=== PATIENT | female | born 1980 | race Caucasian/White ===

== ENCOUNTER 2020-04-07 13:51 | Outpatient (REF) | payer OTHER, SELFPAY | END 2020-04-07 13:52 | disposition home or self-care (01) | LOC: HO.LNP 13:51 | PROVIDERS: Visit Provider Hospitalist | DX: Z20.828 Contact with and (suspected) exposure to other viral communicable diseases (principal) | CPT/HCPCS: U0003 ==

== ENCOUNTER 2020-08-29 08:59 | Outpatient (REF) | payer OTHER, SELFPAY | END 2020-08-29 09:00 | disposition home or self-care (01) | LOC: HO.LAB 08:59 | PROVIDERS: Visit Provider Nurse Practitioner Family | DX: R39.0 Extravasation of urine (principal); R30.0 Dysuria | CPT/HCPCS: 87086 ==

== ENCOUNTER 2020-10-03 11:01 | Outpatient (REF) | payer OTHER, SELFPAY ==
[2020-10-04 08:45] LABS: BV Int Neg Control Negative (Negative); BV Int Pos Control Positive (Positive)
== END 2020-10-03 11:02 | disposition home or self-care (01) ==
LOC: HO.LAB 11:01
PROVIDERS: Visit Provider Nurse Practitioner Family
DX: R35.0 Frequency of micturition (principal)
CPT/HCPCS: 87086; 87480; 87510; 87660

== ENCOUNTER 2022-06-19 09:26 | Outpatient (REF) | payer OTHER, SELFPAY ==
[2022-06-19 17:13] LABS: CT PCR NOT DETECTED (Not Detect.); NG PCR NOT DETECTED (Not Detect.)
[2022-06-20 09:20] LABS: BV Int Neg Control Negative (Negative); BV Int Pos Control Positive (Positive)
[2022-06-24 21:34] LABS: HPV mRNA E6/E7 rflx Not Detected (Not Detected)
== END 2022-06-19 09:27 | disposition home or self-care (01) ==
LOC: HO.LNP 09:26
PROVIDERS: PCP Nurse Practitioner Family; Visit Provider Advanced Practice Midwife
DX: Z01.419 Encounter for gynecological examination (general) (routine) without abnormal findings (principal); Z11.51 Encounter for screening for human papillomavirus (HPV); Z97.5 Presence of (intrauterine) contraceptive device
CPT/HCPCS: 0353U; 87480; 87510; 87624; 87660; 88142

== ENCOUNTER 2022-07-10 15:52 | Outpatient (REF) | payer OTHER, SELFPAY ==
--- NOTE | ~2022-07-10 | MM_ITS ---
EXAMINATION: MM SCREENING DIGITAL BREAST TOMOSYNTHESIS, BILATERAL CLINICAL INFORMATION: Screening. Asymptomatic. The lifetime risk of breast cancer based on the Tyrer-Cuzick Model is 10.4%. COMPARISON: Mammography: None. TECHNIQUE: Digital breast tomosynthesis is performed in both the craniocaudal and mediolateral oblique views along with computer-aided detection (CAD). Synthesized 2D images are generated from the tomosynthesis. FINDINGS: The breasts are extremely dense, which lowers the sensitivity of mammography (ACR BI-RADS breast composition Category d). No suspicious dominant mass or grouping of calcifications within the left breast is identified. Within the anterior inferior medial aspect of the right breast there is an asymmetric density with question of a few calcifications for which spot magnification views are recommended. MM/MM tomosynthesis screening BI IMPRESSION: Right breast density for further evaluation. ASSESSMENT: BI-RADS 0: Incomplete - Need Additional Imaging Evaluation RECOMMENDATION: 1. Additional views of the right breast. 2. Targeted ultrasound if warranted after review of the additional views. 3. Radiology department staff will contact the patient for additional imaging. This patient's information was entered into a reminder system with a target due date for their next mammogram.
== END 2022-07-10 15:53 | disposition home or self-care (01) ==
LOC: HO.MAMMO 15:52
PROVIDERS: Visit Provider Advanced Practice Midwife
DX: Z12.31 Encounter for screening mammogram for malignant neoplasm of breast (principal)
CPT/HCPCS: 77063; 77067

== ENCOUNTER → 2022-07-22 08:58 | Outpatient (BNVA) | payer OTHER, SELFPAY | PROVIDERS: PCP Nurse Practitioner Family; Visit Provider Advanced Practice Midwife | DX: Z30.433 Encounter for removal and reinsertion of intrauterine contraceptive device (principal) | CPT/HCPCS: 58300; 58301; 81025; 99212; J7298 ==

== ENCOUNTER 2022-07-25 13:52 | Outpatient (REF) | payer OTHER, SELFPAY ==
--- NOTE | ~2022-07-25 | MM_ITS ---
EXAMINATION: MM DIAGNOSTIC DIGITAL BREAST TOMOSYNTHESIS, RIGHT CLINICAL INFORMATION: Recall from baseline screening for question of asymmetric density with calcifications anterior lower inner right breast. TC score 10%. COMPARISON: Mammography: 07/10/2022 (baseline) TECHNIQUE: Digital breast tomosynthesis is performed. 2D images are generated from the tomosynthesis. The following views are obtained: Magnification CC, magnification ML, spot MLO, standard ML. FINDINGS: The breasts are heterogeneously dense, which may obscure small masses (ACR BI-RADS breast composition Category c). The additional views show no asymmetric density or mass or architectural abnormality. There are no abnormal calcifications. No mammographic evidence of malignancy. No suspicious findings. Results are discussed with the patient at time of visit. MM/MM tomosynthesis added views R IMPRESSION: No mammographic evidence of malignancy. ASSESSMENT: BI-RADS 1: Negative RECOMMENDATION: Routine annual mammography screening. This patient's information was entered into a reminder system with a target due date for their next mammogram.
== END 2022-07-25 13:53 | disposition home or self-care (01) ==
LOC: HO.MAMMO 13:52
PROVIDERS: Visit Provider Advanced Practice Midwife
DX: R92.2 Inconclusive mammogram (principal); R92.1 Mammographic calcification found on diagnostic imaging of breast
CPT/HCPCS: 77061; 77065

== ENCOUNTER 2023-05-15 15:18 | Outpatient (AMB) | payer OTHER, SELFPAY ==
--- NOTE | 2023-05-15 15:43 | MHC.PC.OV ---
Vital Signs 05/15/23 15:47 Height 5 ft 5 in Weight 244 lb BMI 40.6 BP 122/78 Blood Pressure Location Rt brachial Position Sitting Pulse 90 Pulse Source Pulse Oximeter Pulse Oximetry (%) 98 Oxygen Delivery Method Room Air Intake Visit Reasons: Annual PE Intake Note: last pap: june 2022- [facility] Last mammo: July 2022 Allergies From Soy Adverse Reaction (Mild, Uncoded 05/15/23 15:47) NAUSEA, VOMITING, DIARRHEA, ABDOMINAL PAIN Medication List - Last Reconciled 05/15/23 by FRANCISCO Bradley aripiprazole 10 mg PO DAILY budesonide-formoterol 80-4.5 mcg/actuation 2 puffs PO DAILY bupropion HCl 150 mg PO QAM dextroamphetamine-amphetamine 10 mg ER 1 cap PO QAM dextroamphetamine-amphetamine 20 mg ER 2 caps PO QAM fluoxetine 40 mg PO QAM levonorgestrel (Mirena) intrauterine nortriptyline 25 mg PO BEDTIME Tobacco use date assessed: 07/11/22 Dental Screening Dental Screen Date: 05/15/23 Did you have a dental visit in the last 12 months?: Yes Did you have a dental problem in the last 6 months where you did not have access to dental care?: No Was dental information given to patient?: Patient has dentist HPI Annual PE HPI Details Pt is here for a PE. Will order labs. Mammo is up to date. Has a embedded case manager. Pt has a psychiatrist. [facility] Medical History Bronchitis ADHD (attention deficit hyperactivity disorder) Asthma Surgical History History of wisdom tooth extraction Family History Mother Medical history unknown Father Medical history unknown Maternal Grandmother Cancer Maternal Grandfather CVD (cardiovascular disease) Paternal Grandmother Cancer Paternal Grandfather Past heart attack CVD (cardiovascular disease) Family/Other FH: mental illness Substance abuse Sister In good health Son In good health Daughter In good health Social History Housing: House Patient Tobacco Use Status: Never used Tobacco e-Cigarette/Vaping Use: Never Used Second Hand Smoke Exposure: No service: No Current occupational status: employed 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 1. Little interest or pleasure in doing things: several days 2. Feeling down, depressed, or hopeless: not at all 3. Trouble falling or staying asleep, or sleeping too much: more than half the days 4. Feeling tired or having little energy: more than half the days 5. Poor appetite or overeating: more than half the days 6. Feeling bad about yourself - or that you are a failure or have let yourself or your family down: several days 7. Trouble concentrating on things, such as reading the newspaper or watching television: several days 8. Moving or speaking so slowly that other people could have noticed. Or the opposite - being so fidgety or restless that you have been moving around a lot more than usual: not at all 9. Thoughts that you would be better off or of hurting yourself in some way: not at all Total score: 9 Depression Screening Interpretation: Positive Depression Screening Follow-up: Existing condition and In treatment Depression Screening Done: Yes 90816 - PHQ-9 Billing: Yes Source: Developed by Drs. Nils Alexandra, Sara Victor, Feliberto Santillan and colleagues, with an educational chinmay from [employer]. Thrive Questionnaire Date Thrive assessed: 05/15/23 I am a: Patient What is your living situation today?: I have a steady place to live Within the past 12 months, did the food you bought not last and you didn't have the money to get more?: Never true Within the past 12 months, did you worry whether your food would run out before you got money to buy more?: Never true Do you have trouble paying for medicines?: No Do you have trouble getting transportation to medical appointments?: No Do you have trouble paying your heating and electricity bill?: No Do you have trouble taking care of your child, family member or friend?: No Do you have trouble with day-to-day activities such as bathing, preparing meals, shopping, managing finances, etc.?: No Are you currently unemployed and looking for a job?: No Are you interested in more education?: No Please select the resources that you would like help with: None AUDIT C Alcohol Use Questionnaire (AUDIT-C) 1. How often do you have a drink containing alcohol?: 2-4 times a month 2. How many drinks containing alcohol do you have on a typical day when you are drinking?: 3 or 4 3. How often do you have six or more drinks on one occasion?: Less than monthly Total Score: 4 LORIN-7 AMB Questionnaire LORIN-7 Date LORIN - 7 assessed: 05/15/23 Feeling nervous, anxious, or on edge: 1 = Several days Not being able to stop or control worryin = Several days Worrying too much about different things: 1 = Several days Trouble relaxin = Not at all Being so restless that it is hard to sit still: 1 = Several days Becoming easily annoyed or irritable: 0 = Not at all Feeling afraid as if something awful might happen: 0 = Not at all Total LORIN-7 score (0-4 normal; 5-9 mild; 10-14 moderate; 15-21 severe): 4 Source: Developed by Drs. Nils Alexandra, Sara Victor, Feliberto Santillan and colleagues, with an educational chinmay from [employer]. LORIN-7 Assessment Billing LORIN-7 Assessment Tool: LORIN-7 Assessment 06129 (pt reports stress, but does not want a therapist) Review of Systems Const Denies chills and Denies fever(s) Eyes Denies blurry vision ENT Denies vertigo, Denies dizziness and Denies sore throat Card Denies chest pain at rest, Denies chest pain with activity, Denies diaphoresis, Denies dyspnea and Denies dyspnea on exertion Resp Denies cough, Denies dyspnea, Denies dyspnea on exertion and Denies wheezing GI Denies abdominal pain, Denies melena, Denies hematochezia, Denies constipation, Denies diarrhea and Denies loose stools Denies hematuria Musc Denies numbness and Denies tingling Skin/Breast Denies lesions Neuro Denies vertigo, Denies dizziness, Denies numbness and Denies tingling Psych Denies anxiety, Denies depression, Denies homicidal ideation, Denies suicidal ideation and Denies other (substance abuse) Aller/Immun Denies wheezing Physical exam (Primary Care) Vital Signs: Last Vital Signs Pulse 90 05/15/23 15:47 BP 122/78 05/15/23 15:47 Pulse Ox 98 05/15/23 15:47 Oxygen Delivery Method Room Air 05/15/23 15:47 BMI result Body Mass Index 40.6 Tobacco/Smoking Status: Tobacco use Status Tobacco use date assessed 07/11/22 05/15/23 15:45 Patient Tobacco Use Status Never used Tobacco 05/15/23 15:45 e-Cigarette/Vaping Use Never Used 05/15/23 15:45 PHQ-9: PHQ-9 Score PHQ-9: Total score 9 05/15/23 17:46 Depression Screening Interpretation: Positive Depression Screening Follow-up: Existing condition and In treatment Thrive Assessment: Date of Thrive Assessment Date Thrive assessed 05/15/23 05/15/23 17:46 Const General: cooperative Nutritional Appearance: obese Orientation/consciousness: patient oriented x3 HENMT Head: Yes normal to inspection, Yes normocephalic and Yes atraumatic Ears: TM's normal bilaterally Eyes General: appearance normal, both eyes and all related structures Alignment and Position: alignment normal and position normal Neck Neck: Yes normal visual inspection and Yes no lymphadenopathy Thyroid: Thyroid normal Resp Effort & Inspection: normal respiratory effort Auscultation: clear to auscultation bilaterally Cardio Rate: regular rate Rhythm: regular rhythm Heart sounds: S1 normal heart sound present, S2 normal heart sound present and no murmurs GI Palpation (GI): Soft to palpation and nontender Auscultation: normal bowel sounds Skin Rashes: no rashes Neuro General: patient oriented x3, moves all extremities, no focal motor deficits and deep tendon reflexes 2+ bilaterally Romberg Test: Negative Psych Appearance: grossly normal Mental Status: mental status grossly normal Speech and movement: Normal speech and movement present Affect: normal affect Attitude: cooperative Thought process: Normal thought process present Thought content: Normal thought content present Insight: Good insight present (Psych) Judgement: Good judgement present (Psych) Assessment and Plan Assessment & Plan (1) Physical exam: Code(s): Z00.00 - Encounter for general adult medical examination without abnormal findings Plan: Labs ordered Plan The patient agreed to the use of a biomedical engineering director for this encounter. Scribed for FRANCISCO Rose by Viviana Rao biomedical engineering director, on 05/15/2023 at 16:00 EST. Orders: Orders Complete Blood Count Auto Diff Today Z00.00 - Encounter for general adult medical examination without abnormal findings Comprehensive [place]. Panel Fast Today Z00.00 - Encounter for general adult medical examination without abnormal findings Lipid Panel Today Z00.00 - Encounter for general adult medical examination without abnormal findings TSH reflex Free T4 Today Z00.00 - Encounter for general adult medical examination without abnormal findings UA CC w/rflx Micro + Cult Today Z00.00 - Encounter for general adult medical examination without abnormal findings Coding Level of Care Code Est Pt Prev Care 40-64y(58869) Diagnoses Physical exam Z00.00 Additional Codes LORIN-7 Assessment Billing - LORIN-7 Assessment Tool: LORIN-7 Assessment [id number] ([id number])
[2023-05-15 15:47] VITALS: BP 122/78; PULSE 90; O2SAT 98; BMI 40.6
== END 2023-05-15 16:13 | disposition home or self-care (01) ==
PROVIDERS: PCP Nurse Practitioner Family; Visit Provider Nurse Practitioner Family
DX: Z00.00 Encounter for general adult medical examination without abnormal findings (principal)
CPT/HCPCS: 99396

== ENCOUNTER 2023-06-23 09:54 | Outpatient (AMB) | payer OTHER, SELFPAY ==
[2023-06-23 09:59] VITALS: BP 112/74; BMI 41.5
--- NOTE | 2023-06-23 09:59 | MHC.OFFVIS ---
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 Allergies From Soy Adverse Reaction (Mild, Uncoded 05/15/23 15:47) NAUSEA, VOMITING, DIARRHEA, ABDOMINAL PAIN Medication List - Last Reconciled 06/23/23 by Lucero Dillon CNM aripiprazole 10 mg PO DAILY budesonide-formoterol 80-4.5 mcg/actuation 2 puffs PO DAILY bupropion HCl 150 mg PO QAM dextroamphetamine-amphetamine 10 mg ER 1 cap PO QAM dextroamphetamine-amphetamine 20 mg ER 2 caps PO QAM fluoxetine 40 mg PO QAM levonorgestrel (Mirena) intrauterine nortriptyline 25 mg PO BEDTIME Is last menstrual period known: No (mirena) HPI 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 And that works very well. She has no worries at all about STIs she has not due for Pap smear as her last 1 was done last year and it was negative and she has never had an abnormal 1. She was working on weight loss last year but then sprained her ankle and then has been recovering from plantar fasciitis which she has been doing all the home exercises for so she is planning on trying to readdress the weight loss issues. She sees her primary care provider for her other concerns and is not having any active concerns at this moment. she has a mammogram appointment coming up. [facility] Medical History Bronchitis ADHD (attention deficit hyperactivity disorder) Asthma Surgical History History of wisdom tooth extraction Family History Mother Medical history unknown Father Medical history unknown Maternal Grandmother Cancer Maternal Grandfather CVD (cardiovascular disease) Paternal Grandmother Cancer Paternal Grandfather Past heart attack CVD (cardiovascular disease) Family/Other FH: mental illness Substance abuse Sister In good health Son In good health Daughter In good health Social History Housing: House Patient Tobacco Use Status: Never used Tobacco e-Cigarette/Vaping Use: Never Used Second Hand Smoke Exposure: No service: No Current occupational status: employed 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 [employer] Current occupational exposures/hazards: No Cognitive needs: No Hearing needs: No Vision needs: No Female Reproductive History Menstrual Age of Menarche: 14 control method: progestin IUCD (mirena-replaced 07/22/2022.) Total pregnancies: 2 Number of Living Children: 2 Physical Exam Vital Signs: Last Vital Signs BP 112/74 06/23/23 09:59 Oxygen Delivery Method Room Air 06/23/23 09:59 BMI result Body Mass Index 41.5 Const General: healthy appearing, comfortable, no acute distress, well developed and alert Nutritional Appearance: average body habitus Orientation/consciousness: patient oriented x3 Limitations: no limitations HEENT Head: Yes normocephalic Neck Neck: Yes normal visual inspection Chest Chest palpation & inspection: normal inspection of the chest Breast/axilla inspection: normal inspection of the breasts and normal inspection of the axillae Breast/axilla palpation: normal palpation of the breasts and normal palpation of the axillae Resp Effort & Inspection: normal respiratory effort GI Inspection: Yes normal to inspection, No Abdominal wall edema and No distended Palpation (GI): Soft to palpation and nontender Other: External exam is within normal limits vagina pink and moist cervix multiparous pink healthy appearing normal mucus Mirena string visible. Cervix multiparous mobile nontender adnexa nontender uterus not enlarged midposition slightly difficult to feel secondary to adipose. Good tone with Kegel. General: Yes bladder normal to palpation External Female Exam: normal external appearance and normal appearance of the urethra Speculum Exam - Vagina: normal appearance of the vagina, normal palpation and normal vaginal discharge Speculum Exam - Cervix: normal appearance of the cervix, normal palpation and nontender Bimanual exam- vagina & uterus: normal bimanual exam, normal palpation, uterine size normal, bladder normal to palpation, consistency normal, normal palpation, uterine mobility normal, uterine shape normal, No Cervical tenderness present, non-tender and no cervical motion tenderness Bimanual Exam- Adnexa, other: normal adnexae, no masses, normal and No adnexal tenderness Neuro General: patient oriented x3 Results Reviewed Results Reviewed: Name: Beatrice Sam Age/Sex: 41/F Attending: Lucero Dillon CNM : 1980 Submitted by: Lucero Dillon CNM Copies to: Brian Blake [facility] MR #: [id number] Status: DEP REF Collected: 06/19/22 Location: [facility] Received: 06/19/22 Interpretation Satisfactory for evaluation. Negative for intraepithelial lesion or malignancy. HPV mRNA E6/E7: NOT DETECTED This assay detects E6/E7 viral messenger RNA (mRNA) from 14 high-risk HPV types (16, 18, 31, 33, 35, 39, 45, 51, 52, 56, 58, 59, 66, 68) HPV testing performed by [facility], [place], [place]. See reference laboratory portion of the EMR for entire report. Clinical Information LMP: Mirena Previous PAP test: 10/18/15, WNL Material Received ThinPrep-Cervical Copies To [facility] BlakeKATERINE 1960 [facility] [address]. [address] [place] [id number] Lucero Dillon CNM [address] [place] [address] Dr. Christel Kelley [place] [id number] Electronically Signed By: Beatrice Jazmin Jessica 06/29/22 7221 The Pap Test is a screening procedure with the inherent possibility of both false negative and false positive results. Results should be interpreted in the context of historic and current clinical findings. Reliability of the Pap Test is enhanced by performing the test on a regular repetitive basis. Patient: Beatrice Sam Age/Sex: 41/F MR#: [id number] Page 1 of 1 Assessment & Plan Assessment & Plan (1) Screening for cervical cancer: Comment: 06/19/2022 Pap is negative with negative HPV. Code(s): Z12.4 - Encounter for screening for malignant neoplasm of cervix (2) Presence of 52 mg levonorgestrel-releasing intrauterine device (IUD): Comment: .Was replaced 07/22/2022 Code(s): Z97.5 - Presence of (intrauterine) contraceptive device (3) Well woman exam with routine gynecological exam: Code(s): Z01.419 - Encounter for gynecological examination (general) (routine) without abnormal findings (4) Obesity, morbid, BMI 40.0-49.9: Comment: unfortunately gained, secondary to having a sprained ankle and plantar fasciitis in 2022, is trying to get back and the groove this year... Code(s): E66.01 - Morbid (severe) obesity due to excess calories Plan -----Discussed in this visit the following: healthy balanced diet, regular and consistent exercise, getting recommended health screens, doing the best she can for her particular health concerns, kegel exercises, pap smear screening and followup recommendations, mammography screening and SBE, normal changes in cycles in her life stage--- . Reviewed her history as noted in HPI she is happy with the new Mirena and it has not giving her any difficulty. She has her mammogram coming up she has not due for Pap and she has never had an abnormal Pap. She declined STI testing is having no concerns whatsoever Discussed an acknowledged the challenges of trying to be as healthy as 1 can be in losing weight especially in the face of injuries that she is had this year. She is doing the best she can with self-care she has not quite ready for a referral to weight management at this time. She could discuss it with her primary if she so chooses. Coding Level of Care Code Est Pt Prev Care 40-64y(74124) Diagnoses Screening for cervical cancer Z12.4 Presence of 52 mg levonorgestrel-releasing intrauterine device (IUD) Z97.5 Well woman exam with routine gynecological exam Z01.419 Obesity, morbid, BMI 40.0-49.9 E66.01
== END 2023-06-23 11:05 | disposition home or self-care (01) ==
PROVIDERS: Visit Provider Advanced Practice Midwife
DX: Z01.419 Encounter for gynecological examination (general) (routine) without abnormal findings (principal); E66.01 Morbid (severe) obesity due to excess calories; Z97.5 Presence of (intrauterine) contraceptive device
CPT/HCPCS: 99396

== ENCOUNTER → 2023-06-23 09:54 | Outpatient (BNVA) | payer OTHER, SELFPAY | PROVIDERS: Visit Provider Advanced Practice Midwife ==

== ENCOUNTER 2023-07-14 13:34 | Outpatient (REF) | payer OTHER, SELFPAY ==
--- NOTE | ~2023-07-14 | MM_ITS ---
EXAMINATION: MM SCREENING DIGITAL BREAST TOMOSYNTHESIS, BILATERAL CLINICAL INFORMATION: Screening. Asymptomatic. COMPARISON: Mammography: This study is compared with prior exams dating back to 2022. TECHNIQUE: Digital breast tomosynthesis is performed in both the craniocaudal and mediolateral oblique views along with computer-aided detection (CAD). Synthesized 2D images are generated from the tomosynthesis. FINDINGS: The breasts are heterogeneously dense, which may obscure small masses (ACR BI-RADS breast composition Category c). There are no significant masses, abnormal calcifications, or other abnormalities. MM/MM tomosynthesis screening BI IMPRESSION: No mammographic evidence of malignancy. ASSESSMENT: BI-RADS BI-RADS 1 - Negative RECOMMENDATION: Routine annual mammography screening. 1 year F/U This examination should not preclude the clinical evaluation of a suspicious palpable abnormality. This patient's information was entered into a reminder system with a target due date for their next mammogram.
== END 2023-07-14 13:35 | disposition home or self-care (01) ==
LOC: HO.MAMMO 13:34
PROVIDERS: PCP Nurse Practitioner Family; Visit Provider Nurse Practitioner Family
DX: Z12.31 Encounter for screening mammogram for malignant neoplasm of breast (principal)
CPT/HCPCS: 77063; 77067

== ENCOUNTER → 2023-07-14 13:45 | Outpatient (BNV) | payer OTHER, SELFPAY | PROVIDERS: PCP Nurse Practitioner Family; Visit Provider Radiology Diagnostic Radiology | DX: Z12.31 Encounter for screening mammogram for malignant neoplasm of breast (principal) | CPT/HCPCS: 77063; 77067 ==

== ENCOUNTER 2024-06-03 10:21 | Outpatient (AMB) | payer OTHER, SELFPAY ==
[2024-06-03 10:25] VITALS: BP 116/78; PULSE 87; O2SAT 98; BMI 40.8
--- NOTE | 2024-06-03 10:25 | A.OFFPC_ITS ---
Vital Signs 06/03/24 10:25 Height 5 ft 5 in Weight 245 lb BMI 40.8 BP 116/78 Blood Pressure Location Lt brachial Position Sitting Pulse 87 Pulse Source Pulse Oximeter Pulse Oximetry (%) 98 Oxygen Delivery Method Room Air Intake Visit Reasons: PE Intake Note: Pt is here today for PE. Allergies From Soy Adverse Reaction (Mild, Uncoded 06/03/24 11:00) NAUSEA, VOMITING, DIARRHEA, ABDOMINAL PAIN Medication List - Last Reconciled 06/03/24 by Brian Blake [facility]- aripiprazole 10 mg PO DAILY budesonide-formoterol 80-4.5 mcg/actuation 2 puffs PO DAILY bupropion HCl XL 150 mg PO QAM dextroamphetamine-amphetamine 10 mg ER 30 mg PO QAM dextroamphetamine-amphetamine 20 mg ER 20 mg PO QAM fluoxetine 40 mg PO QAM levonorgestrel (Mirena) intrauterine nortriptyline 25 mg PO BEDTIME Tobacco use date assessed: 06/03/24 Dental Screening Dental Screen Date: 06/03/24 Did you have a dental visit in the last 12 months?: Yes Did you have a dental problem in the last 6 months where you did not have access to dental care?: No Was dental information given to patient?: Patient has dentist HPI PE HPI Details History of Present Illness The patient is a 43-year-old female presenting with a focus on health maintenance and management of morbid obesity. She acknowledges her condition of being morbidly obese and expresses challenges in managing her weight despite attempts at diet and exercise. There are no other chronic illnesses or acute symptoms reported at this time. The patient has not reported previous interventions other than lifestyle modifications. She denies a history of colon cancer, pancreatic cancer, and pancreatitis. Additionally, there is no reported history of suicidal thoughts, homicidal thoughts, chest pain, shortness of breath, or gastrointestinal symptoms like blood in stool, constipation, or d iarrhea. Health Maintenance - Mammogram: Up to date - Possible pharmacological intervention: GLP-1 agonists discussed for obesity management - Refusal of seasonal influenza vaccinat ion Social History - Reports engaging in attempts to manage weight through diet and exercise - Expresses difficulty with weight manag ement Review of Systems - Cardiovascular: Denies chest pain, jen rtness of breath - Gastrointestinal: Denies blood in stoo l, constipation, diarrhea - Psychiatric: Denies suicidal ideation, homicidal ideation Physical Exam General: Cooperative, healthy appearing, comfortable, no acute distress and well developed, morbidly obese Orientation: Patient oriented x3 Limitations: No limitations Head: Normal to inspection Ears: Hearing grossly normal bilaterally Nose: Normal external nose present Face and sinus: Normal facial exam Eyes: Appearance normal, both eyes and all related structures Neck: Normal visual inspection and Yes full ROM Respiratory: Normal respiratory effort and able to speak in complete sentences. Clear to auscultation bilaterally Cardiovascular: Regular rate and rhythm. Normal S1 and S2 GI: Normal to inspection. Soft to palpation and nontender Skin: No rashes or lesions noted Neuro: Patient oriented x3 Extremities: Normal to inspection, positive patellar reflexes Results Plan - Advise the patient to contact the [employer] regarding coverage for GLP-1 agonists as a therapeutic option for obesity management. - Recommend continuation of current diet magdiel and exercise efforts to manage obesity. - Plan for lab work to further assess he r health status. Patient was informed and verbally consented to the use of an ambient scribe for clinic note documentation during this visit. Discussion Notes I discussed with the patient that her mammogram is up to date, indicating adequate health maintenance. We addressed her morbid obesity, and I suggested investigating the use of GLP-1 agonists, contingent upon insurance coverage. I clarified that these medications can aid in weight loss and improve glycemic control. She expressed reluctance regarding the influenza vaccine, and I respected her decision at this time. We agreed on conducting necessary laboratory tests to monitor her health status further. Patient Instructions - Contact your insurance company to inqu randy about coverage for GLP-1 agonists. - Continue efforts with diet and exercis e for weight management. - Await instructions for lab work as par t of routine health evaluation. [facility] Medical History Bronchitis ADHD (attention deficit hyperactivity disorder) Asthma Surgical History History of wisdom tooth extraction Family History Mother Medical history unknown Father Medical history unknown Maternal Grandmother Cancer Maternal Grandfather CVD (cardiovascular disease) Paternal Grandmother Cancer Paternal Grandfather Past heart attack CVD (cardiovascular disease) Family/Other FH: mental illness Substance abuse Sister In good health Son In good health Daughter In good health Social History Housing: House Patient Tobacco Use Status: Never used Tobacco e-Cigarette/Vaping Use: Never Used Second Hand Smoke Exposure: No service: No Current occupational status: employed 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 1. Little interest or pleasure in doing things: several days 2. Feeling down, depressed, or hopeless: not at all 3. Trouble falling or staying asleep, or sleeping too much: more than half the days 4. Feeling tired or having little energy: several days 5. Poor appetite or overeating: several days 6. Feeling bad about yourself - or that you are a failure or have let yourself or your family down: not at all 7. Trouble concentrating on things, such as reading the newspaper or watching television: nearly every day 8. Moving or speaking so slowly that other people could have noticed. Or the opp osite - being so fidgety or restless that you have been moving around a lot more than usual: more than half the days 9. Thoughts that you would be better off or of hurting yourself in some way: not at all Total score: 10 Depression Screening Interpretation: Positive (denies any si or hi) Depression Screening Follow-up: Existing condition and In treatment Depression Screening Done: Yes 43619 - PHQ-9 Billing: Yes Source: Developed by Drs. Nils Alexandra, Sara Victor, Feliberto Santillan and colleagues, with an educational chinmay from [employer]. Thrive Questionnaire Date Thrive assessed: 06/03/24 I am a: Patient What is your living situation today?: I have a steady place to live Within the past 12 months, did the food you bought not last and you didn't have the money to get more?: Never true Within the past 12 months, did you worry whether your food would run out before you got money to buy more?: Never true Do you have trouble paying for medicines?: No Do you have trouble getting transportation to medical appointments?: No Do you have trouble paying your heating and electricity bill?: No Do you have trouble taking care of your child, family member or friend?: No Do you have trouble with day-to-day activities such as bathing, preparing meals, shopping, managing finances, etc.?: No Are you currently unemployed and looking for a job?: No Are you interested in more education?: No Please select the resources that you would like help with: None Currently or been in a relationship where the following occur: No concerns reported THRIVE Score: 0 AUDIT C Alcohol Use Questionnaire (AUDIT-C) 1. How often do you have a drink containing alcohol?: 2-3 times a week 2. How many drinks containing alcohol do you have on a typical day when you are drinking?: 1 or 2 3. How often do you have six or more drinks on one occasion?: Never Total Score: 3 LORIN-7 AMB Questionnaire LORIN-7 Date LORIN - 7 assessed: 06/03/24 Feeling nervous, anxious, or on edge: 3 = Nearly every day Not being able to stop or control worryin = Several days Worrying too much about different things: 1 = Several days Trouble relaxin = Several days Being so restless that it is hard to sit still: 1 = Several days Becoming easily annoyed or irritable: 0 = Not at all Feeling afraid as if something awful might happen: 0 = Not at all Total LORIN-7 score (0-4 normal; 5-9 mild; 10-14 moderate; 15-21 severe): 7 Source: Developed by Drs. Nils Alexandra, Sara Victor, Feliberto Santillan and colleagues, with an educational chinmay from [employer]. LORIN-7 Assessment Billing LORIN-7 Assessment Tool: LORIN-7 Assessment 54745 Physical exam (Primary Care) Vital Signs: Last Vital Signs Pulse 87 06/03/24 10:25 BP 116/78 06/03/24 10:25 Pulse Ox 98 06/03/24 10:25 Oxygen Delivery Method Room Air 06/03/24 10:25 BMI result Body Mass Index 40.8 Tobacco/Smoking Status: Tobacco use Status Tobacco use date assessed 06/03/24 06/03/24 10:31 Patient Tobacco Use Status Never used Tobacco 06/03/24 10:31 e-Cigarette/Vaping Use Never Used 06/03/24 10:31 PHQ-9: PHQ-9 Score PHQ-9: Total score 10 06/03/24 10:31 Depression Screening Interpretation: Positive (denies any si or hi) Depression Screening Follow-up: Existing condition and In treatment Thrive Assessment: Date of Thrive Assessment Date Thrive assessed 06/03/24 06/03/24 10:31 Currently or been in a relationship where the following occur: No concerns reported Coding Level of Care Code Est Pt Prev Care 40-64y(97433) Diagnoses Obesity, morbid, BMI 40.0-49.9 E66.01 Physical exam Z00.00 Additional Codes LORIN-7 Assessment Billing - LORIN-7 Assessment Tool: LORIN-7 Assessment 22357 ([id number]) PHQ-9 - 01694 - PHQ-9 Billing: Yes ([id number]) Assessment & Plan Assessment & Plan (1) Obesity, morbid, BMI 40.0-49.9: Code(s): E66.01 - Morbid (severe) obesity due to excess calories Category: Medical (2) Physical exam: Code(s): Z00.00 - Encounter for general adult medical examination without abnormal findings Category: Medical Plan: . Plan . Orders: Orders Complete Blood Count Auto Diff Today E66.01 - Morbid (severe) obesity due to excess calories, Z00.00 - Encounter for general adult medical examination without abnormal findings Comprehensive Sarah. Panel Fast Today E66.01 - Morbid (severe) obesity due to excess calories, Z00.00 - Encounter for general adult medical examination without abnormal findings TSH reflex Free T4 Today E66.01 - Morbid (severe) obesity due to excess calories, Z00.00 - Encounter for general adult medical examination without abnormal findings UA CC w/rflx Micro + Cult Today E66.01 - Morbid (severe) obesity due to excess calories, Z00.00 - Encounter for general adult medical examination without abnormal findings Lipid Panel Today E66.01 - Morbid (severe) obesity due to excess calories, Z00.00 - Encounter for general adult medical examination without abnormal findings
== END 2024-06-03 10:58 | disposition home or self-care (01) ==
PROVIDERS: PCP Nurse Practitioner Family; Visit Provider Nurse Practitioner Family
DX: Z00.00 Encounter for general adult medical examination without abnormal findings (principal); E66.01 Morbid (severe) obesity due to excess calories; Z68.41 Body mass index [BMI] 40.0-44.9, adult

== ENCOUNTER → 2024-06-03 10:21 | Outpatient (BNVA) | payer OTHER, SELFPAY | PROVIDERS: PCP Nurse Practitioner Family; Visit Provider Nurse Practitioner Family | DX: Z00.00 Encounter for general adult medical examination without abnormal findings (principal); E66.01 Morbid (severe) obesity due to excess calories; Z68.41 Body mass index [BMI] 40.0-44.9, adult; Z71.3 Dietary counseling and surveillance | CPT/HCPCS: 96127 ==

== ENCOUNTER 2024-06-28 09:46 | Outpatient (AMB) | payer OTHER, SELFPAY ==
--- NOTE | 2024-06-28 10:35 | MHC.OFFVIS ---
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 ([place]) Accompanied by: Self / Same As Patient Allergies From Soy Adverse Reaction (Mild, Uncoded 06/03/24 11:00) NAUSEA, VOMITING, DIARRHEA, ABDOMINAL PAIN Medication List - Last Reconciled 06/28/24 by Lucero Dillon CNM aripiprazole 10 mg PO DAILY budesonide-formoterol 80-4.5 mcg/actuation 2 puffs PO DAILY bupropion HCl XL 150 mg PO QAM dextroamphetamine-amphetamine 10 mg ER 30 mg PO QAM dextroamphetamine-amphetamine 20 mg ER 20 mg PO QAM fluoxetine 40 mg PO QAM levonorgestrel (Mirena) intrauterine nortriptyline 25 mg PO BEDTIME Is last menstrual period known: No Post menopausal: No Patient : No HPI HPI 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 She has no worries whatsoever about STDs and declines testing. Her last Pap smear was normal and so she does not need a repeat Pap smear this year she has her mammogram scheduled for next month she has a primary care provider her only health issue is the challenge of trying very hard to lose weight and it is very frustrating. She will be getting fasting blood work soon. She has no other concerns today she does not get periods with the Mirena at all. and she has never tried to feel the strings. [facility] Medical History Bronchitis ADHD (attention deficit hyperactivity disorder) Asthma Surgical History History of wisdom tooth extraction Family History Mother Medical history unknown Father Medical history unknown Maternal Grandmother Cancer Maternal Grandfather CVD (cardiovascular disease) Paternal Grandmother Cancer Paternal Grandfather Past heart attack CVD (cardiovascular disease) Family/Other FH: mental illness Substance abuse Sister In good health Son In good health Daughter In good health Social History Housing: House Patient Tobacco Use Status: Never used Tobacco e-Cigarette/Vaping Use: Never Used Second Hand Smoke Exposure: No Patient : No service: No Current occupational status: employed 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 [employer] Current occupational exposures/hazards: No Cognitive needs: No Hearing needs: No Vision needs: No Female Reproductive History Menstrual Age of Menarche: 14 control method: progestin IUCD (Mirena) Total pregnancies: 2 Full term: 2 Date of last pap smear: 06/19/22 (negative pap smear, negative hpv) History of abnormal pap smear: No Date of Mammogram: 07/14/23 (bi rad 1) Physical Exam Vital Signs: Last Vital Signs BP 116/72 06/28/24 10:39 BMI result Body Mass Index 39.6 Const General: healthy appearing, comfortable, no acute distress, well developed and alert Nutritional Appearance: average body habitus Orientation/consciousness: patient oriented x3 Limitations: no limitations HEENT Head: Yes normocephalic Neck Neck: Yes normal visual inspection Chest Chest palpation & inspection: normal inspection of the chest Breast/axilla inspection: normal inspection of the breasts and normal inspection of the axillae Breast/axilla palpation: normal palpation of the breasts and normal palpation of the axillae Resp Effort & Inspection: normal respiratory effort GI Inspection: Yes normal to inspection, No Abdominal wall edema and No distended Palpation (GI): Soft to palpation and nontender Other: External exam within normal limits vagina is pink and moist healthy appearing clear and white discharge cervix multiparous pink smooth healthy appearing with Mirena string visible in os about 2 cm long. Cervix is mobile nontender uterus difficult to palpate but mobile and nontender adnexa nontender good tone with Kegel. General: Yes bladder normal to palpation External Female Exam: normal external appearance and normal appearance of the urethra Speculum Exam - Vagina: normal appearance of the vagina, normal palpation and normal vaginal discharge Speculum Exam - Cervix: normal appearance of the cervix, normal palpation and nontender Bimanual exam- vagina & uterus: normal bimanual exam, normal palpation, uterine size normal, bladder normal to palpation, consistency normal, normal palpation, uterine mobility normal, uterine shape normal, No Cervical tenderness present, non-tender and no cervical motion tenderness Bimanual Exam- Adnexa, other: normal adnexae, no masses, normal and No adnexal tenderness Neuro General: patient oriented x3 Assessment & Plan Assessment & Plan (1) Screening for cervical cancer: Comment: 06/19/2022 Pap is negative with negative HPV. Code(s): Z12.4 - Encounter for screening for malignant neoplasm of cervix Category: Medical (2) Well woman exam with routine gynecological exam: Code(s): Z01.419 - Encounter for gynecological examination (general) (routine) without abnormal findings Category: Medical (3) Presence of 52 mg levonorgestrel-releasing intrauterine device (IUD): Comment: .Was replaced 07/22/2022 Code(s): Z97.5 - Presence of (intrauterine) contraceptive device Category: Social Hx (4) Breast cancer screening: Code(s): Z12.39 - Encounter for other screening for malignant neoplasm of breast Category: Medical (5) Obesity (BMI 30-39.9): Code(s): E66.9 - Obesity, unspecified Category: Medical Plan -----Discussed in this visit the following: healthy balanced diet, regular and consistent exercise, getting recommended health screens, doing the best she can for her particular health concerns, kegel exercises, pap smear screening and followup recommendations, mammography screening and SBE, normal changes in cycles in her life stage--- . She will be getting her mammogram next month and she will be getting fasting blood work for her primary care provider soon.. Acknowledged the challenges and the difficulty losing weight. She tries to walk as much as possible but it is challenging in the winter. she does work at home and is on a computer a lot. RTC 1 year. Coding Level of Care Code Est Pt Prev Care 40-64y(10790) Diagnoses Screening for cervical cancer Z12.4 Well woman exam with routine gynecological exam Z01.419 Presence of 52 mg levonorgestrel-releasing intrauterine device (IUD) Z97.5 Breast cancer screening Z12.39 Obesity (BMI 30-39.9) E66.9
[2024-06-28 10:39] VITALS: BP 116/72; BMI 39.6
== END 2024-06-28 13:13 | disposition home or self-care (01) ==
LOC: HO.HWSM 09:47
PROVIDERS: PCP Nurse Practitioner Family; Visit Provider Advanced Practice Midwife
DX: Z01.419 Encounter for gynecological examination (general) (routine) without abnormal findings (principal); E66.9 Obesity, unspecified; Z97.5 Presence of (intrauterine) contraceptive device
CPT/HCPCS: 99396; 99459

== ENCOUNTER → 2024-06-28 09:46 | Outpatient (BNVA) | payer OTHER, SELFPAY | PROVIDERS: PCP Nurse Practitioner Family; Visit Provider Advanced Practice Midwife | DX: Z01.419 Encounter for gynecological examination (general) (routine) without abnormal findings (principal); E66.9 Obesity, unspecified; Z68.39 Body mass index [BMI] 39.0-39.9, adult; Z97.5 Presence of (intrauterine) contraceptive device | CPT/HCPCS: 99396; 99459 ==

== ENCOUNTER 2024-07-21 08:32 | Outpatient (REF) | payer OTHER, SELFPAY | END 2024-07-21 08:33 | disposition home or self-care (01) | LOC: HO.MAMMO 08:32 | PROVIDERS: PCP Nurse Practitioner Family; Visit Provider Nurse Practitioner Family | DX: Z12.31 Encounter for screening mammogram for malignant neoplasm of breast (principal) | CPT/HCPCS: 77063; 77067 ==

== ENCOUNTER → 2024-07-21 08:45 | Outpatient (BNV) | payer OTHER, SELFPAY | PROVIDERS: PCP Nurse Practitioner Family; Visit Provider Internal Medicine | DX: Z12.31 Encounter for screening mammogram for malignant neoplasm of breast (principal) | CPT/HCPCS: 77063; 77067 ==

== ENCOUNTER 2024-11-30 09:56 | Outpatient (AMB) | payer OTHER, SELFPAY ==
[2024-11-30 09:59] VITALS: BP 110/82; PULSE 99; RESP 16; TEMP 36.8; O2SAT 100; BMI 40.8
--- NOTE | 2024-11-30 09:59 | MHC.PC.OV ---
Vital Signs 11/30/24 09:59 Height 5 ft 5 in Weight 245 lb BMI 40.8 BP 110/82 Blood Pressure Location Lt brachial Position Sitting Respiration 16 Pulse 99 Pulse Source Pulse Oximeter Temp 98.3 F Temp Source Oral Pulse Oximetry (%) 100 Oxygen Delivery Method Room Air Intake Visit Reasons: 6 month follow up Intake Note: Pt is here today for her 6mo. f/u Allergies From Soy Adverse Reaction (Mild, Uncoded 11/30/24 09:59) NAUSEA, VOMITING, DIARRHEA, ABDOMINAL PAIN Tobacco use date assessed: 11/30/24 Dental Screening Dental Screen Date: 11/30/24 Did you have a dental visit in the last 12 months?: Yes Did you have a dental problem in the last 6 months where you did not have access to dental care?: No Was dental information given to patient?: Patient has dentist HPI 6 month follow up HPI Details Chief Complaint The patient presents for follow-up on anxiety, depression, and weight management. History of Present Illness The patient is a 44-year-old female presenting with anxiety, depression, and moderate obesity. She has been using a calorie counting nehemias for weight management but reports discontinuing its use recently. Regarding her mental health, the patient is under the care of a psychiatrist and reports doing fair overall. She denies any suicidal ideation or homicidal thoughts but experiences episodes of increased anxiety, likely related to her home life. The patient was encouraged to continue using the calorie counting nehemias and to work on her diet and exercise routine to aid in weight loss. Social History - Exercise: Encouraged to work on diet and exercise routine for weight management Health Maintenance - Encouraged continuation of calorie counting nehemias for weight management - Advised to work on diet and exercise routine Review of Systems - Psychiatric: Reports episodes of increased anxiety related to home life. Denies suicidal ideation or homicidal thoughts. Physical Exam General: Cooperative, healthy appearing, comfortable, no acute distress and well developed, morbidly obese Orientation: Patient oriented x3 Limitations: No limitations Head: Normal to inspection Ears: Hearing grossly normal bilaterally Nose: Normal external nose present Face and sinus: Normal facial exam Eyes: Appearance normal, both eyes and all related structures Neck: Normal visual inspection and Yes full ROM Respiratory: Normal respiratory effort and able to speak in complete sentences. Clear to auscultation bilaterally Cardiovascular: Regular rate and rhythm. Normal S1 and S2 GI: Normal to inspection. Soft to palpation and nontender Skin: No rashes or lesions noted Neuro: Patient oriented x3 Extremities: Normal to inspection Results Plan The patient was advised to continue using the calorie counting nehemias to manage her weight effectively. She was also encouraged to maintain a regular diet and exercise routine to support her weight loss goals. For her mental health, the patient will continue to follow up with her psychiatrist. She was reassured about her current mental health status and encouraged to seek help if her anxiety worsens. Patient was informed and verbally consented to the use of an ambient scribe for clinic note documentation during this visit. Discussion Notes I discussed with the patient the importance of continuing her calorie counting nehemias to aid in weight management and encouraged her to maintain a consistent diet and exercise routine. We also reviewed her mental health status, and I reassured her about her current condition, advising her to continue her psychiatric follow-ups and to reach out if her anxiety symptoms escalate. Patient Instructions - Continue using the calorie counting nehemias to help manage your weight. - Maintain a regular diet and exercise routine to support weight loss. - Follow up with your psychiatrist as planned and seek help if anxiety worsens. [facility] Medical History Bronchitis ADHD (attention deficit hyperactivity disorder) Asthma Surgical History History of wisdom tooth extraction Family History Mother Medical history unknown Father Medical history unknown Maternal Grandmother Cancer Maternal Grandfather CVD (cardiovascular disease) Paternal Grandmother Cancer Paternal Grandfather Past heart attack CVD (cardiovascular disease) Family/Other FH: mental illness Substance abuse Sister In good health Son In good health Daughter In good health Social History Housing: House Patient Tobacco Use Status: Never used Tobacco e-Cigarette/Vaping Use: Never Used Second Hand Smoke Exposure: No service: No Current occupational status: employed 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 1. Little interest or pleasure in doing things: several days 2. Feeling down, depressed, or hopeless: several days 3. Trouble falling or staying asleep, or sleeping too much: nearly every day 4. Feeling tired or having little energy: nearly every day 5. Poor appetite or overeating: more than half the days 6. Feeling bad about yourself - or that you are a failure or have let yourself or your family down: several days 7. Trouble concentrating on things, such as reading the newspaper or watching television: nearly every day 8. Moving or speaking so slowly that other people could have noticed. Or the opposite - being so fidgety or restless that you have been moving around a lot more than usual: several days 9. Thoughts that you would be better off or of hurting yourself in some way: not at all Total score: 15 Depression Screening Interpretation: Positive (denies any si or hi) Depression Screening Follow-up: Existing condition and In treatment Depression Screening Done: Yes Source: Developed by Drs. Nils Alexandra, Sara Victor, Feliberto Santillan and colleagues, with an educational chinmay from [employer]. Thrive Questionnaire Date Thrive assessed: 11/23/24 I am a: Patient What is your living situation today?: I have a steady place to live Within the past 12 months, did the food you bought not last and you didn't have the money to get more?: Never true Within the past 12 months, did you worry whether your food would run out before you got money to buy more?: Never true Do you have trouble paying for medicines?: No Do you have trouble getting transportation to medical appointments?: No Do you have trouble paying your heating and electricity bill?: No Do you have trouble taking care of your child, family member or friend?: No Do you have trouble with day-to-day activities such as bathing, preparing meals, shopping, managing finances, etc.?: No Are you currently unemployed and looking for a job?: No Are you interested in more education?: No Please select the resources that you would like help with: None Currently or been in a relationship where the following occur: No concerns reported THRIVE Score: 0 AUDIT C Alcohol Use Questionnaire (AUDIT-C) 1. How often do you have a drink containing alcohol?: 4 or more times a week 2. How many drinks containing alcohol do you have on a typical day when you are drinking?: 1 or 2 3. How often do you have six or more drinks on one occasion?: Less than monthly Total Score: 5 Score Reviewed/Action Taken: Yes LORIN-7 AMB Questionnaire LORIN-7 Date LORIN - 7 assessed: 06/03/24 Feeling nervous, anxious, or on edge: 3 = Nearly every day Not being able to stop or control worryin = Nearly every day Worrying too much about different things: 2 = More than half the days Trouble relaxin = Several days Being so restless that it is hard to sit still: 1 = Several days Becoming easily annoyed or irritable: 1 = Several days Feeling afraid as if something awful might happen: 0 = Not at all Total LORIN-7 score (0-4 normal; 5-9 mild; 10-14 moderate; 15-21 severe): 11 Source: Developed by Drs. Nils Alexandra, Sara Victor, Feliberto Santillan and colleagues, with an educational chinmay from [employer]. LORIN-7 Assessment Billing LORIN-7 Assessment Tool: LORIN-7 Assessment 03160 (denies any si or hi) Physical exam (Primary Care) Vital Signs: Last Vital Signs Temp 98.3 F 11/30/24 09:59 Pulse 99 11/30/24 09:59 Resp 16 11/30/24 09:59 BP 110/82 11/30/24 09:59 Pulse Ox 100 11/30/24 09:59 Oxygen Delivery Method Room Air 11/30/24 09:59 BMI result Body Mass Index 40.8 Tobacco/Smoking Status: Tobacco use Status Tobacco use date assessed 11/30/24 11/30/24 10:00 Patient Tobacco Use Status Never used Tobacco 11/30/24 10:00 e-Cigarette/Vaping Use Never Used 11/30/24 10:00 PHQ-9: PHQ-9 Score PHQ-9: Total score 15 11/30/24 10:00 Depression Screening Interpretation: Positive (denies any si or hi) Depression Screening Follow-up: Existing condition and In treatment Thrive Assessment: Date of Thrive Assessment Date Thrive assessed 11/23/24 11/30/24 10:00 Currently or been in a relationship where the following occur: No concerns reported Coding Level of Care Code Est Pt Level 3 (03414) Diagnoses Anxiety associated with depression F41.8 Obesity, morbid, BMI 40.0-49.9 E66.01 Additional Codes LORIN-7 Assessment Billing - LORIN-7 Assessment Tool: LORIN-7 Assessment 90042 ([id number]) Assessment & Plan Assessment & Plan (1) Anxiety associated with depression: Code(s): F41.8 - Other specified anxiety disorders Category: Medical (2) Obesity, morbid, BMI 40.0-49.9: Code(s): E66.01 - Morbid (severe) obesity due to excess calories Category: Medical Plan .
== END 2024-11-30 10:38 | disposition home or self-care (01) ==
LOC: HO.HMCC 09:57
PROVIDERS: PCP Nurse Practitioner Family; Visit Provider Nurse Practitioner Family
DX: F41.8 Other specified anxiety disorders (principal); E66.01 Morbid (severe) obesity due to excess calories; Z68.41 Body mass index [BMI] 40.0-44.9, adult

== ENCOUNTER → 2024-11-30 09:56 | Outpatient (BNVA) | payer OTHER, SELFPAY | PROVIDERS: PCP Nurse Practitioner Family; Visit Provider Nurse Practitioner Family | DX: F41.8 Other specified anxiety disorders (principal); E66.01 Morbid (severe) obesity due to excess calories; Z68.41 Body mass index [BMI] 40.0-44.9, adult; Z71.3 Dietary counseling and surveillance | CPT/HCPCS: 96127; 99212 ==